=== PATIENT | female | born 1965 | race Caucasian/White ===

== ENCOUNTER 2019-08-21 18:12 | Emergency (ER) | payer OTHER ==
[~2019-08-21] VITALS: Ht 157.5 cm; Wt 93.0 kg
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
--- NOTE | 2019-08-21 19:01 | NUR ---
GWEN ALLEN BS FOR EXAM.
[2019-08-21] MEDS ORDERED: LEVO100T5 PO (19:06)
[2019-08-21] MEDS ORDERED: LISI1TAB23 PO (19:06)
--- NOTE | 2019-08-21 19:10 | NUR ---
TO RADIOLOGY PER ALVERTO
[2019-08-21] MEDS ORDERED: KETOROLAC 30 MG/1 ML ONE (19:12)
[2019-08-21] MEDS ORDERED: KETOROLAC 30 MG/1 ML IM ONE (19:30)
--- NOTE | 2019-08-21 19:33 | NUR ---
TORADOL GIVEN PER EMAR
[2019-08-21 20:44] VITALS: BP 162/87
== END 2019-08-21 20:50 | disposition home or self-care (01) ==
LOC: ED 18:57
DX: G89.11 Acute pain due to trauma (principal); M25.512 Pain in left shoulder; M25.511 Pain in right shoulder; M19.011 Primary osteoarthritis, right shoulder; F17.200 Nicotine dependence, unspecified, uncomplicated; I10 Essential (primary) hypertension; Z76.0 Encounter for issue of repeat prescription; V49.49XA Driver injured in collision with other motor vehicles in traffic accident, initial encounter; Y93.89 Activity, other specified; Y92.89 Other specified places as the place of occurrence of the external cause; Y99.8 Other external cause status
CPT/HCPCS: 73030; 96372; 99283; J1885

== ENCOUNTER 2019-12-03 15:41 | Emergency (ER) | payer SELFPAY ==
[~2019-12-03] VITALS: Ht 157.5 cm; Wt 90.0 kg
[~2019-12-03 15:41] MED LIST: LEVO100T5 PO; LISI1TAB23 PO
[2019-12-03 17:10] LABS: BASOPHILS # (AUTO) 0.01 x10^3/uL (0-0.1); BASOPHILS % (AUTO) 0 % (0-1); EOSINOPHILS # (AUTO) 0.11 x10^3/uL (0-0.4); EOSINOPHILS % (AUTO) 1 % (1-7); LYMPHOCYTES # (AUTO) 1.16 x10^3/uL (1-3.4); LYMPHOCYTES % (AUTO) 15 % (22-44); MD NO; MEAN CORPUSCULAR HEMOGLOBIN 28.5 pg (27.0-34.8); MEAN CORPUSCULAR HGB CONC 31.8 g/dL (32.4-35.8); MEAN CORPUSCULAR VOLUME 89.4 fL (80-100); MEAN PLATELET VOLUME 8.5 fL (7.4-10.4); MONOCYTES # (AUTO) 0.58 x10^3/uL (0.2-0.8); MONOCYTES % (AUTO) 8 % (2-9); NEUTROPHILS # (AUTO) 5.67 x10^3/uL (1.8-6.8); NEUTROPHILS % (AUTO) 75 % (42-75); PLATELET COUNT 237 x10^3/uL (130-400); RED CELL DISTRIBUTION WIDTH 14.9 % (9.6-15.2)
[2019-12-03 17:20] LABS: ALANINE AMINOTRANSFERASE 22 U/L (12-78); ALBUMIN 3.2 g/dL (3.4-5.0); ANION GAP 6 mmol/L (5-15); CHLORIDE 108 mmol/L (98-107); CREATININE 0.93 mg/dL (0.55-1.02)
[2019-12-03 17:33] LABS: ALKALINE PHOSPHATASE 147 U/L (45-117); BILIRUBIN,TOTAL 0.2 mg/dL (0.2-1.0); CALCIUM 8.7 mg/dL (8.5-10.1); TOTAL PROTEIN 7.3 g/dL (6.4-8.2)
[2019-12-03 17:45] VITALS: BP 152/98
== END 2019-12-03 18:48 | disposition home or self-care (01) ==
LOC: ED 17:25
DX: U07.1 COVID-19 (principal); J06.9 Acute upper respiratory infection, unspecified; Z76.0 Encounter for issue of repeat prescription; I10 Essential (primary) hypertension; F17.200 Nicotine dependence, unspecified, uncomplicated; R79.9 Abnormal finding of blood chemistry, unspecified
CPT/HCPCS: 36415; 71045; 80053; 85025; 87635; 99284

== ENCOUNTER 2019-12-18 06:56 | Inpatient (IN) | payer SELFPAY ==
[~2019-12-18] VITALS: Ht 172.7 cm; Wt 93.6 kg
[2019-12-18] MEDS ORDERED: ACETAMINOPHEN 500 MG TABLET PO ONE (07:30)
[2019-12-18] MEDS ORDERED: KETOROLAC 30 MG/1 ML IVPush ONE (07:30)
[2019-12-18] MEDS ORDERED: SODIUM CHLORIDE 0.9% 1,000ML IVBOLUS ONE (07:30)
[2019-12-18] MEDS ORDERED: ONDANSETRON 2MG/ML, 2ML IVPush ONE ×2 (07:30→10:30)
[2019-12-18] MEDS ORDERED: KETOROLAC 30 MG/1 ML ONE (07:33)
[2019-12-18] MEDS ORDERED: ONDANSETRON 2MG/ML, 2ML ONE ×2 (07:33→10:07)
[2019-12-18] MEDS ORDERED: ACETAMINOPHEN 500 MG TABLET ONE (07:34)
--- NOTE | 2019-12-18 08:05 | NUR ---
PT SITTING UPRIGHT ON GURNEY, LAB AND XRAY AT BEDSIDE. PT PROVIDED GLASS OF WATER, OK PER ERP. PT DENIES ANY NEEDS AT THIS TIME. CALL LIGHT WITHIN REACH, DROPLET+ PRECAUTIONS IN PLACE.
[2019-12-18 08:08] LABS: O2 FLOW ROOM AIR L/min
[2019-12-18 08:59] LABS: BASOPHILS % (AUTO) 0 % (0-1); EOSINOPHILS % (AUTO) 0 % (1-7); LYMPHOCYTES % (AUTO) 9 % (22-44); MD NO; MEAN CORPUSCULAR HEMOGLOBIN 28.2 pg (27.0-34.8); MEAN CORPUSCULAR HGB CONC 32.9 g/dL (32.4-35.8); MEAN PLATELET VOLUME 8.4 fL (7.4-10.4); MONOCYTES # (AUTO) 0.23 x10^3/uL (0.2-0.8); MONOCYTES % (AUTO) 3 % (2-9); NEUTROPHILS # (AUTO) 8.32 x10^3/uL (1.8-6.8); NEUTROPHILS % (AUTO) 89 % (42-75); PLATELET COUNT 283 x10^3/uL (130-400); RED BLOOD COUNT 4.36 x10^6/uL (3.82-5.3)
--- NOTE | 2019-12-18 09:10 | NUR ---
PT SITTING UPRIGHT ON GURNEY, ABLE TO DOZE OFF. PT STATES "I FEEL SO MUCH BVETTER NOW, CAN I GO HOME" AFTER MEDICATIONS AND FLUID BOLUS. PT NOW AFEBRILE AT THIS TIME, 98.9*. PT DENIES ANY ADDITIONAL NEEDS AT THIS TIME, CALL LIGHT WITHIN REACH, FALL PRECAUTIONS IN PLACE.
[2019-12-18 09:13] LABS: ALANINE AMINOTRANSFERASE 59 U/L (12-78); ALBUMIN 2.5 g/dL (3.4-5.0); ANION GAP 10 mmol/L (5-15); CHLORIDE 103 mmol/L (98-107)
[2019-12-18 09:17] LABS: ALKALINE PHOSPHATASE 174 U/L (45-117); BILIRUBIN,TOTAL 0.3 mg/dL (0.2-1.0); TOTAL PROTEIN 6.5 g/dL (6.4-8.2); TROPONIN I < 0.015 ng/mL (0.000-0.045)
--- NOTE | 2019-12-18 09:25 | NUR ---
PT TO CT
[2019-12-18] MEDS ORDERED: OMNIPAQUE 350 MG/ML, 100ML BOTTLE ONE (09:39)
--- NOTE | 2019-12-18 10:05 | NUR ---
PT UPRIGHT ON GURNEY FOLLOWING CT. PT STATES SHE "WANTS TO THROW UP AND FEELS VERY NAUSEAOUS", EPR AT BEDSIDE DISCUSSING PLAN OF CARE, WILL MEDICATE PER EMAR. PT PROVIDED EMESIS BAG. O2 ROOM AIR SATURATION NOTED TO BE 86%-89%, PT PLACED ON 2L O2 VIA NASAL CANNULA. CALL LIGHT WITHIN REACH, FALL PRECAUTIONS IN PLACE. NO ADDITIONAL NEEDS AT THIS TIME.
[2019-12-18] MEDS ORDERED: AZITHROMYCIN 500 MG in SODIUM CHLORIDE 0.9% 250 ML IV ONE (10:30)
[2019-12-18] MEDS ORDERED: CEFTRIAXONE PMX 1GM/50ML 50 ML IV ONE (10:30)
[2019-12-18] MEDS ORDERED: CEFTRIAXONE PMX 1GM/50ML 50 ML ONE (10:34)
--- NOTE | 2019-12-18 11:02 | NUR ---
NALINIH AT BEDSIDE. PT SITTING UPRIGHT ON GURNEY ON CELL PHONE. PT STATES SHE "FEELS BETTER", GLASS OF WATER PROVIDED. PT DENIES NEED TO USE BATHROOM. COMFORT MEASURES PROVIDED, NO ADDITIONAL NEEDS AT THIS TIME. CALL LIGHT WITHIN REACH.
[2019-12-18] MEDS ORDERED: hydrALAzine 20 MG/ML, 1ML IVPush PRN (12:00)
[2019-12-18] MEDS ORDERED: LABETALOL 5MG/ML, 20ML IVPush PRN ×2 (12:00)
[2019-12-18] MEDS ORDERED: ONDANSETRON ODT 4 MG PO PRN (12:00)
[2019-12-18] MEDS ORDERED: ACETAMINOPHEN 325 MG TABLET PO PRN (12:00)
[2019-12-18] MEDS ORDERED: ONDANSETRON 2MG/ML, 2ML IVPush PRN (12:00)
--- NOTE | 2019-12-18 12:00 | NUR ---
PT SITTING UPRIGHT ON ALVERTOJOSE. PT STATES SHE "FEELS MUCH BETTER, NO MORE NAUSEA". PT GIVEN CRACKERS PER REQUEST. NO OTHER NEEDS AT THIS TIME. CALL LIGHT WITHIN REACH, COMFORT MEASURES PROVIDED.
[2019-12-18] MEDS ORDERED: ENOXAPARIN 40 MG/0.4 ML ONE (12:13)
[2019-12-18] MEDS ORDERED: THIAMINE 100MG TABLET ONE (12:13)
[2019-12-18] MEDS ORDERED: DEXAMETHASONE 4 MG/ML, 1ML ONE ×2 (12:13→12:25)
[2019-12-18] MEDS: THIAMINE 100MG TABLET PO SCH (12:17)
[2019-12-18] MEDS: ENOXAPARIN 40 MG/0.4 ML SQ SCH (12:17)
[2019-12-18] MEDS: DEXAMETHASONE 4 MG/ML, 1ML IVPush SCH (12:18)
[2019-12-18] MEDS: LACTATED RINGERS 1,000 ML IV SCH ×3 (12:20→22:45)
--- NOTE | 2019-12-18 12:54 | NUR ---
BREAK RN NOTE: PT RESTING ON GURNEY, A&O, RESPS EVEN AND UNLABORED. 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 MEDTELE ROOM ASSIGNED, PT TO BE TRANSPORTED SOON REPORT IS EXCHANGED.
--- NOTE | 2019-12-18 13:08 | NUR ---
REPORT CALLED TO RECEIVING POPEYE MARTE. PT AWAITING TRANSPORT TO ROOM 491.
[2019-12-18 13:21] VITALS: BP 103/59
[2019-12-18] MEDS: CHOLECALCIFEROL 5,000u TAB PO SCH (13:32)
[2019-12-18] MEDS: ZINC SULFATE 220 MG CAPSULE PO SCH (13:32)
[2019-12-18] MEDS ORDERED: ALBUTEROL-IPRATROPIUM MDI INH INH PRN (15:00)
[2019-12-18] MEDS: ASCORBIC ACID 250 MG TAB PO SCH (16:40)
[2019-12-18 19:46] VITALS: BP 107/74
[2019-12-19 00:44] VITALS: BP 109/65
[2019-12-19] MEDS: LACTATED RINGERS 1,000 ML IV SCH ×2 (06:10→12:50)
[2019-12-19 06:13] LABS: BASOPHILS % (AUTO) 0 % (0-1); EOSINOPHILS # (AUTO) 0.02 x10^3/uL (0-0.4); EOSINOPHILS % (AUTO) 0 % (1-7); LYMPHOCYTES % (AUTO) 13 % (22-44); MD NO; MEAN CORPUSCULAR HEMOGLOBIN 28.5 pg (27.0-34.8); MEAN CORPUSCULAR HGB CONC 32.7 g/dL (32.4-35.8); MEAN PLATELET VOLUME 9.3 fL (7.4-10.4); MONOCYTES # (AUTO) 0.17 x10^3/uL (0.2-0.8); MONOCYTES % (AUTO) 3 % (2-9); NEUTROPHILS # (AUTO) 5.15 x10^3/uL (1.8-6.8); NEUTROPHILS % (AUTO) 84 % (42-75); PLATELET COUNT 286 x10^3/uL (130-400); RED BLOOD COUNT 3.96 x10^6/uL (3.82-5.3); RED CELL DISTRIBUTION WIDTH 14.9 % (9.6-15.2)
[2019-12-19 06:22] LABS: ALANINE AMINOTRANSFERASE 50 U/L (12-78); ALBUMIN 2.3 g/dL (3.4-5.0); ANION GAP 6 mmol/L (5-15); CALCIUM 8.6 mg/dL (8.5-10.1); CHLORIDE 106 mmol/L (98-107); CREATININE 0.85 mg/dL (0.55-1.02)
[2019-12-19 06:25] LABS: ALKALINE PHOSPHATASE 154 U/L (45-117); BILIRUBIN,TOTAL 0.2 mg/dL (0.2-1.0); TOTAL PROTEIN 6.3 g/dL (6.4-8.2)
[2019-12-19 07:35] VITALS: BP 133/84
[2019-12-19] MEDS ORDERED: ASCORBIC ACID 500 MG TABLET ONE (08:46)
[2019-12-19] MEDS: CHOLECALCIFEROL 5,000u TAB PO SCH (08:52)
[2019-12-19] MEDS: THIAMINE 100MG TABLET PO SCH (08:52)
[2019-12-19] MEDS: ZINC SULFATE 220 MG CAPSULE PO SCH (08:52)
[2019-12-19] MEDS: DEXAMETHASONE 4 MG/ML, 1ML IVPush SCH (08:53)
[2019-12-19] MEDS: ASCORBIC ACID 250 MG TAB PO SCH (08:53)
[2019-12-19] MEDS ORDERED: LEVOTHYROXINE 100 MCG TABLET PO SCH (10:00)
[2019-12-19] MEDS ORDERED: LISINOPRIL 10 MG TABLET PO SCH (10:00)
[2019-12-19 12:32] VITALS: BP 126/81
[2019-12-19] MEDS: ENOXAPARIN 40 MG/0.4 ML SQ SCH (12:42)
[2019-12-19] MEDS ORDERED: AZIT250T PO (12:53)
[2019-12-19] MEDS ORDERED: AMOX500T PO (12:53)
[2019-12-20] MEDS ORDERED: HYDROCHLOROTHIAZIDE 12.5 MG CAPSULE PO SCH (09:00)
== END 2019-12-19 14:13 | disposition home or self-care (01) | DRG 177 ==
LOC: ED 07:43 → EDIP 11:36 → 4EST 13:17
PROVIDERS: ADMIT Family Medicine; ATTEND Family Medicine
DX: U07.1 COVID-19 (principal); J96.01 Acute respiratory failure with hypoxia; J12.89 Other viral pneumonia; I10 Essential (primary) hypertension; N63.0 Unspecified lump in unspecified breast; J45.909 Unspecified asthma, uncomplicated; F17.200 Nicotine dependence, unspecified, uncomplicated
CPT/HCPCS: 36415; 36600; 71045; 71275; 80053; 82803; 83605; 83735; 84145; 84484; 85025; 87040; 87635; 93005; 96361; 96365; 96375; 96376; G0378; J0456; J0696; J1100; J1650; J1885; J2405; Q0162; Q9967; J7030; J7050; J7120

== ENCOUNTER 2020-08-30 11:49 | Emergency (ER) | payer MEDICAID ==
[~2020-08-30] VITALS: Ht 157.5 cm; Wt 93.0 kg
[~2020-08-30 11:49] MED LIST changes: +AMOX500T PO; +AZIT250T PO
[2020-08-30 11:57] VITALS: BP 180/118
--- NOTE | 2020-08-30 14:15 | NUR ---
[id number]
--- NOTE | 2020-08-30 14:28 | NUR ---
NIL X2
== END 2020-08-30 16:59 | disposition left against medical advice (07) ==
LOC: ED 14:17
DX: M54.5 Low back pain (principal); Z53.21 Procedure and treatment not carried out due to patient leaving prior to being seen by health care provider

== ENCOUNTER → 2020-12-07 | Outpatient (CLI) | payer MEDICAID ==
[~2020-12-07] MED LIST changes: +LEVO200T53 PO; +LEVO25TA68 PO; +LISI1TAB39 PO; +TRAM50TA2 PO
[2020-12-07 09:50] LABS: CHLORIDE 106 mmol/L (98-107)
[2020-12-07 09:56] LABS: ALBUMIN 3.2 g/dL (3.4-5.0); ALKALINE PHOSPHATASE 141 U/L (45-117); ANION GAP 6 mmol/L (5-15); BILIRUBIN,TOTAL 0.3 mg/dL (0.2-1.0); CREATININE 1.08 mg/dL (0.55-1.02); TOTAL PROTEIN 7.3 g/dL (6.4-8.2)
[2020-12-07 10:18] LABS: ALANINE AMINOTRANSFERASE 19 U/L (12-78)
== END | disposition home or self-care (01) ==
LOC: STAR 08:52
PROVIDERS: ATTEND Orthopaedic Surgery
DX: Z01.812 Encounter for preprocedural laboratory examination (principal); Z20.822 Contact with and (suspected) exposure to COVID-19; S46.212A Strain of muscle, fascia and tendon of other parts of biceps, left arm, initial encounter; S43.432A Superior glenoid labrum lesion of left shoulder, initial encounter; M19.019 Primary osteoarthritis, unspecified shoulder; M75.50 Bursitis of unspecified shoulder; X58.XXXA Exposure to other specified factors, initial encounter; Y93.89 Activity, other specified; Y92.89 Other specified places as the place of occurrence of the external cause; Y99.8 Other external cause status
CPT/HCPCS: 36415; 80053; 87635

== ENCOUNTER 2020-12-12 11:51 | Day surgery (SDC) | payer MEDICAID ==
[~2020-12-12] VITALS: Ht 157.5 cm; Wt 88.9 kg
[2020-12-12 12:36] VITALS: BP 108/79
== END 2020-12-12 18:00 | disposition home or self-care (01) ==
LOC: OUT 11:51
PROVIDERS: ATTEND Orthopaedic Surgery
DX: S43.432A Superior glenoid labrum lesion of left shoulder, initial encounter (principal); S46.012A Strain of muscle(s) and tendon(s) of the rotator cuff of left shoulder, initial encounter; M65.812 Other synovitis and tenosynovitis, left shoulder; M75.42 Impingement syndrome of left shoulder; M19.012 Primary osteoarthritis, left shoulder; M94.212 Chondromalacia, left shoulder; M75.52 Bursitis of left shoulder; I10 Essential (primary) hypertension; J45.909 Unspecified asthma, uncomplicated; X58.XXXA Exposure to other specified factors, initial encounter; Y93.89 Activity, other specified; Y92.89 Other specified places as the place of occurrence of the external cause; Y99.8 Other external cause status
CPT/HCPCS: 29823; 29824; 29826; 64415; J0171; J2250; J2704; J3010; J7120